=== PATIENT | male | born 1945 | race Asian ===

== ENCOUNTER 2017-01-14 07:45 | Day surgery (SDC) | payer BC ==
[2017-01-10 17:37] VITALS: BMI 27.3
[~2017-01-14 07:45] MED LIST: LEVOFLOXACIN 500 MG PREMIX BAG IVPB ONE
[2017-01-14] MEDS ORDERED: LEVOFLOXACIN 500 MG IVPB 100 ML IVPB ONE (10:51)
[2017-01-14] MEDS ORDERED: MIDAZOLAM HCL 2 MG/2 ML SINGLE DOSE VIAL ONE ×2 (11:02)
[2017-01-14] MEDS ORDERED: LEVOFLOXACIN 500 MG PREMIX BAG IVPB ONE (11:05)
[2017-01-14] MEDS ORDERED: KETOROLAC TROMETHAMINE 30 MG/1 ML VIAL ONE (11:10)
[2017-01-14] MEDS ORDERED: DEXAMETHASONE SOD PHOSPHATE 4 MG/1 ML VIAL ONE (11:10)
--- NOTE | 2017-01-14 11:35 | OP ---
Operative Note - Note: Operative Date: 01/14/17 Pre-Operative Diagnosis: right renal stones Operation: right eswl Findings: two stones each measuring 5mm in mid and lower poles Post-Operative Diagnosis: Same as Pre-op Surgeon: Archie Vail Anesthesia: General Operative Report Dictated: Yes
[2017-01-14] MEDS ORDERED: oxyCODONE HCL 5 MG TABLET PO PRN (11:40)
[2017-01-14] MEDS ORDERED: ONDANSETRON 4 MG/2 ML VIAL IVPUSH PRN (11:40)
[2017-01-14] MEDS ORDERED: PROMETHAZINE HCL 25 MG/1 ML VIAL IVPUSH PRN (11:40)
[2017-01-14] MEDS ORDERED: LABETALOL HCL 5 MG/1 ML (100MG/20 ML VIAL) IVPUSH ONE ×2 (11:55→12:30)
[2017-01-14 12:36] VITALS: TEMP 97.8
[2017-01-14 14:11] VITALS: BP 148/85; PULSE 87
--- NOTE | 2017-01-14 20:23 | OP ---
DATE OF OPERATION: 01/14/2017 PREOPERATIVE DIAGNOSIS: Right renal stones. POSTOPERATIVE DIAGNOSIS: Right renal stones. PROCEDURE: Right extracorporeal shock wave lithotripsy. ATTENDING SURGEON: Pablo Vail M.D. ANESTHESIA: General. OPERATION: Patient presented for extracorporeal shock wave lithotripsy for 2 renal stones. The patient was brought in the operating room and placed in the supine position on the operating room table. Ultrasonography and fluoroscopy were performed. Two stones each measuring 5 mm were identified to the right mid and right lower poles of the kidney. General anesthesia was then administered as well as preoperative antibiotics consisting of Levaquin. Then 1500 impulses at 20 joules of power was administered to each stone for a total of 3000 impulses. No complication was noted. The patient tolerated the procedure very well. PABLO ZACARIAS M.D. [id number]
== END 2017-01-14 14:12 | disposition home or self-care (01) ==
LOC: JASU-SURG 07:45
PROVIDERS: ATTEND Urology
PROC: 0TF3XZZ Fragmentation in Right Kidney Pelvis, External Approach (ICD-10-PCS; principal; 2017-01-14 10:15)
DX: N20.0 Calculus of kidney (principal)
CPT/HCPCS: 94760

== ENCOUNTER 2018-03-10 07:14 | Day surgery (SDC) | payer BC ==
[2018-03-07 14:47] VITALS: BMI 27.3
[2018-03-10] MEDS ORDERED: MIDAZOLAM HCL 2 MG/2 ML SINGLE DOSE VIAL ONE (08:53)
[2018-03-10] MEDS ORDERED: ACETAMINOPHEN 325 MG TABLET (FP) PO PRN (09:45)
[2018-03-10] MEDS ORDERED: ONDANSETRON 4 MG/2 ML VIAL IVPUSH PRN (09:45)
[2018-03-10] MEDS ORDERED: oxyCODONE HCL 5 MG TABLET PO PRN (09:45)
[2018-03-10] MEDS ORDERED: LACTATED RINGERS SOLUTION 1,000 ML IV SCH (09:45)
--- NOTE | 2018-03-10 10:00 | OP ---
Operative Note - Note: Operative Date: 03/10/18 Pre-Operative Diagnosis: Right kidney stone Operation: Right kidney ESWL Findings: 5mm mid pole Right kidney stone Post-Operative Diagnosis: Same as Pre-op Surgeon: Archie Vail (not cfomplicated) Anesthesia: Fractional
[2018-03-10 11:07] VITALS: TEMP 97.6
[2018-03-10] MEDS ORDERED: ACETAMINOPHEN 325 MG TABLET (FP) ONE (12:00)
[2018-03-10 14:52] VITALS: BP 130/70; PULSE 70
--- NOTE | 2018-03-11 09:05 | OP ---
DATE OF OPERATION: 03/10/2018 PREOPERATIVE DIAGNOSIS: Right renal stone. POSTOPERATIVE DIAGNOSIS: Right renal stone. PROCEDURE: Right extracorporeal shock wave lithotripsy. ATTENDING: Archie Gómez MD ANESTHESIA: General. DESCRIPTION OF OPERATION: The patient was brought in the operating room and placed in supine position on the operating room table. Ultrasonography and fluoroscopy were performed. A 5-mm right mid-pole stone was identified. The patient was then given anesthesia and preoperative antibiotics. Extracorporeal shock wave lithotripsy was then performed; 2500 impulses at 17 joules of power were administered to the stone with excellent fragmentation noted under real-time ultrasonography and fluoroscopy. There were no complications noted. The disposition of the patient was to the recovery room. Ana Rosa [id number]
== END 2018-03-10 14:05 | disposition home or self-care (01) ==
LOC: JASU-SURG 07:14
PROVIDERS: ATTEND Urology
PROC: 0TF3XZZ Fragmentation in Right Kidney Pelvis, External Approach (ICD-10-PCS; principal; 2018-03-10 08:45)
DX: N20.0 Calculus of kidney (principal)
CPT/HCPCS: 82962; 94760